=== PATIENT | female | born 1985 | race Caucasian/White ===

== ENCOUNTER 2017-02-22 22:39 | Emergency (ER) | payer BC, OTHER ==
[2017-02-22 22:49] VITALS: BP 135/79
[2017-02-22] MEDS ORDERED: Sodium Chloride 0.9% 10 ML Syringe FLUSH PRN (23:11)
[2017-02-22] MEDS ORDERED: Sodium Chloride 0.9% 1,000 ML IV STA (23:11)
[2017-02-23] MEDS ORDERED: Acetaminophen 325 MG Tab PO ONE (00:36)
--- NOTE | 2017-02-23 00:43 | EDM.PDOC ---
ED HPI GI/ABDOMINAL - General Chief Complaint: LABORATORY ASST Problem Stated Complaint: 12.5 WKS PG ABDOMAINAL PAIN Time Seen by Provider: 02/22/17 23:06 Source of Information: Reports: Patient History Limitations: Reports: No limitations - History of Present Illness INITIAL COMMENTS - FREE TEXT/NARRATIVE: The patient presents with lower abdominal pain and left lower back pain. This all started yesterday morning when she was driving home. She is about 12 1/2 weeks gestation. She is . Her LNMP was November 24. She has not had any troubles with the . She has no discharge or vaginal bleeding. She has no fever, chills, nausea, vomiting or dyuria. She had an US at 8 weeks and there were no problems. Movement makes it worse. Timing/Duration: Reports: Day(s): (Yesterday) Location: other (Lower abdomen and left lower back) Quality: Reports: burning Severity: moderate Worsens with: Reports: other (moving) Context: Denies: sick contact, bad/questionable food, out of country travel, recent surgery, recent trauma, lifting, activity/exercise Associated Symptoms (-Female): Reports: denies other symptoms - Related Data Allergies/ADRs: Allergies Allergy/AdvReac Type Severity Reaction Status Date / Time No Known Allergies Allergy Verified 03/02/14 13:06 Home Meds: Home Meds PNV95/Ferrous Fumarate/FA [ Tablet] 1 tab PO DAILY 02/22/17 [History] Social & Family History - Tobacco Use Smoking Status *Q: Never Smoker Second Hand Smoke Exposure: No - Caffeine Use Caffeine Use: Reports: Soda, Tea - Recreational Drug Use Recreational Drug Use: No ED ROS GENERAL - Review of Systems Review Of Systems: See Below Constitutional: Reports: no symptoms HEENT: Reports: No symptoms Respiratory: Reports: No Symptoms Cardiovascular: Reports: No symptoms Endocrine: Reports: no symptoms GI/Abdominal: Reports: Abdominal pain. Denies: Nausea, Vomiting : Reports: no symptoms Musculoskeletal: Reports: back pain Skin: Reports: no symptoms Neurological: Reports: No Symptoms ED EXAM, GI/ABD - Physical Exam Exam: See Below Exam Limited By: No limitations General Appearance: alert, no apparent distress Ears: normal external exam Nose: normal inspection Head: atraumatic, normocephalic Neck: normal inspection Respiratory/Chest: no respiratory distress, lungs clear, normal breath sounds Cardiovascular: regular rate, rhythm, no edema, no murmur GI/Abdominal: soft, no organomegaly, no mass, other (Gravid uterus above the umbilicus. Pain upon palpation to the lower abdomen to the midline and left.) Back Exam: other (Pain upon palpation to the left lower back) Extremities: normal inspection Course - Vital Signs Last Recorded V/S: Last Vital Signs Temp 97.7 F 02/22/17 22:47 Pulse 82 02/22/17 22:47 Resp 20 02/22/17 22:47 BP 135/79 02/22/17 22:47 Pulse Ox 98 02/22/17 22:47 - Orders/Labs/Meds Orders: Active Orders 24 hr Category Date Time Status Peripheral IV Care [RC] . DIRECTED Care 02/22/17 23:11 Active Sodium Chloride 0.9% [Saline Flush] Med 02/22/17 23:11 Active 10 ml FLUSH ASDIRECTED PRN Peripheral IV Insertion Adult [OM.PC] Stat Oth 02/22/17 23:11 Ordered Medication Orders Sodium Chloride (Saline Flush) 10 ml FLUSH ASDIRECTED PRN PRN Reason: Keep Vein Open Last Admin: 02/22/17 23:40 Dose: 10 ml Labs: Laboratory Tests 02/22/17 02/22/17 02/22/17 Range/Units 23:20 23:40 23:40 WBC 12.88 H (3.98-10.04) K/mm3 RBC 4.79 (3.98-5.22) M/mm3 Hgb 12.8 (11.2-15.7) gm/L Hct 38.4 (34.1-44.9) % MCV 80.2 (79.4-94.8) fl MCH 26.7 (25.6-32.2) pg MCHC 33.3 (32.2-35.5) g/dl RDW Std Deviation 43.9 (36.4-46.3) fL Plt Count 240 (182-369) K/mm3 MPV 10.7 (9.4-12.3) fl Neut % (Auto) 72.2 H (34.0-71.1) % Lymph % (Auto) 21.6 (19.3-51.7) % [place] % (Auto) 4.8 (4.7-12.5) % Eos % (Auto) 0.9 (0.7-5.8) Baso % (Auto) 0.2 (0.1-1.2) % Neut # (Auto) 9.29 H (1.56-6.13) K/mm3 Lymph # (Auto) 2.78 (1.18-3.74) K/mm3 [place] # (Auto) 0.62 H (0.24-0.36) K/mm3 Eos # (Auto) 0.12 (0.04-0.36) K/mm3 Baso # (Auto) 0.03 (0.01-0.08) K/mm3 Sodium 138 (136-145) mEq/L Potassium 3.7 (3.5-5.1) mEq/L Chloride 104 (98-107) mEq/L Carbon Dioxide 25 (21-32) mEq/L Anion Gap 12.7 (5-15) BUN 10 (7-18) mg/dL Creatinine 0.8 (0.55-1.02) mg/dL Est Cr Clr Drug Dosing 97.13 mL/min Estimated GFR (MDRD) > 60 (>60) mL/min BUN/Creatinine Ratio 12.5 L (14-18) Glucose 95 (74-106) mg/dL Calcium 9.3 (8.5-10.1) mg/dL Total Bilirubin 0.2 (0.2-1.0) mg/dL AST 9 L (15-37) U/L ALT 14 (14-59) U/L Alkaline Phosphatase 76 (46-116) U/L Total Protein 7.6 (6.4-8.2) g/dl Albumin 3.5 (3.4-5.0) g/dl Globulin 4.1 gm/dL Albumin/Globulin Ratio 0.9 L (1-2) Lipase 145 (73-393) U/L Urine Color Yellow (Yellow) Urine Appearance Clear (Clear) Urine pH 6.5 (5.0-8.0) Ur Specific [place] 1.020 (1.005-1.030) Urine Protein Negative (Negative) Urine Glucose (UA) Negative (Negative) Urine Ketones Negative (Negative) Urine Occult Blood Negative (Negative) Urine Nitrite Negative (Negative) Urine Bilirubin Negative (Negative) Urine Urobilinogen 0.2 (0.2-1.0) Ur Leukocyte Esterase Trace H (Negative) Urine RBC 0-5 (0-5) /hpf Urine WBC 5-10 H (0-5) /hpf Ur Epithelial Cells 5-10 H (0-5) /hpf Urine Bacteria Few (FEW) /hpf Urine Mucus Not seen (FEW) /hpf Meds: Medications Generic Name Dose Route Start Last Admin Trade Name Freq PRN Reason Stop Dose Admin Sodium Chloride 10 ml 02/22/17 23:11 02/22/17 23:40 Saline Flush FLUSH 10 ml ASDIRECTED PRN Administration Keep Vein Open Discontinued Medications Generic Name Dose Route Start Last Admin Trade Name Freq PRN Reason Stop Dose Admin Acetaminophen 975 mg 02/23/17 00:36 02/23/17 00:40 Tylenol PO 02/23/17 00:37 975 mg NOW ONE Administration Sodium Chloride 1,000 mls @ 1,000 mls/hr 02/22/17 23:11 02/22/17 23:40 Normal Saline IV 02/23/17 00:10 1,000 mls/hr .BOLUS STA Administration - Re-Assessments/Exams Free Text/Narrative Re-Assessment/Exam: 02/23/17 00:43 I ordered an IV NS 1L bolus, labs and UA. 02/23/17 00:43 Her WBC is slightly elevated at 12.88. That can bee seen in . Her CMP and lipase are negative. Her UA shows no UTI. She feels a little better. This appears to be muscle related. She will try some tylenol and see if that helps. I did an US and FHTs were 155 and the baby was moving. I did not see any problems with the placenta. 02/23/17 01:17 She feels a little better and is tired. I will discharge her home. 02/23/17 01:18 Departure - Departure Time of Disposition: 01:20 Disposition: Home, Self-Care 01 Condition: good Clinical Impression: Qualifiers: Weeks of gestation: 12 weeks Qualified Code(s): Z3A.12 - 12 weeks gestation of Abdominal pain Qualifiers: Abdominal location: lower abdomen, unspecified Qualified Code(s): R10.30 - Lower abdominal pain, unspecified Back pain Qualifiers: Back pain location: low back pain Chronicity: acute Back pain laterality: left Sciatica presence: without sciatica Qualified Code(s): M54.5 - Low back pain Forms: ED Department Discharge Additional Instructions: Take tylenol for pain. Please return if you have more pain or if the pain moves to the right lower abdomen where your appendix is. Please return if you have nausea, vomiting, or vaginal bleeding. Follow up with your provider next week. - My Orders Last 24 Hours: My Active Orders 02/22/17 23:11 Peripheral IV Care [RC] . DIRECTED Sodium Chloride 0.9% [Saline Flush] 10 ml FLUSH ASDIRECTED PRN Peripheral IV Insertion Adult [OM.PC] Stat - Assessment/Plan Last 24 Hours: My Active Orders 02/22/17 23:11 Peripheral IV Care [RC] . DIRECTED Sodium Chloride 0.9% [Saline Flush] 10 ml FLUSH ASDIRECTED PRN Peripheral IV Insertion Adult [OM.PC] Stat
== END 2017-02-23 01:30 | disposition home or self-care (01) ==
LOC: SUPCPDRO 22:39 → JD.ED 22:39
DX: O99.89 Other specified diseases and conditions complicating pregnancy, childbirth and the puerperium (principal); M54.5 Low back pain; R10.30 Lower abdominal pain, unspecified; Z3A.12 12 weeks gestation of pregnancy
CPT/HCPCS: 36415; 80053; 81001; 83690; 85025; 96360; 99284; A9270; J7040; J7050; 99283

== ENCOUNTER 2017-11-11 16:47 | Emergency (ER) | payer OTHER ==
[2017-11-11 17:08] VITALS: BP 143/96
[2017-11-11] MEDS ORDERED: Sodium Chloride 0.9% 10 ML Syringe FLUSH PRN (17:23)
[2017-11-11] MEDS ORDERED: Sodium Chloride 0.9% 1,000 ML IV SCH (17:30)
[2017-11-11] MEDS ORDERED: metroNIDAZOLE 500 MG Tab PO ONE (19:58)
--- NOTE | 2017-11-11 20:06 | EDM.PDOC ---
ED HPI GENERAL MEDICAL PROBLEM - General Chief Complaint: General Stated Complaint: RECTOCELE Time Seen by Provider: 11/11/17 17:03 Source of Information: Reports: Patient, Family History Limitations: Reports: No Limitations - History of Present Illness INITIAL COMMENTS - FREE TEXT/NARRATIVE: The patient presents with a possible rectocele. She recently had her 5th child on August 30. In July, she was seen here by Dr Bernardo for an OB check and a prolapsed cervix. It was manually reduced by the patient. She delivered on the at [facility]. She had a uterine prolapse where the cervix was at the hymen. It was reduced. She also has a short perineum of 1cm. She did good after the surgery until her follow up OB visit and she had a speculum exam and there was lots of discomfort with that and rectal exam. She was told she had a rectocele and she may need that fixed. She has continued to have vaginal pain, discharge and at time rectal bleeding. She has no fever or chills at this time but she does not feel good. She has some dysuria. She has no chest pain or shortness of breath. She has some nausea but no vomiting. Onset: Gradual Duration: Week(s): (2) Location: Reports: Pelvis Quality: Reports: Sharp Severity: Moderate Improves with: Reports: None Worsens with: Reports: Movement Associated Symptoms: Reports: Nausea/Vomiting. 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 Denies: Vomiting : Reports: Other (Pain and discharge) ED EXAM, GENERAL - Physical Exam Exam: See Below Exam Limited By: No Limitations General Appearance: Alert, No Apparent Distress Ears: Normal External Exam Nose: Normal Inspection Head: Atraumatic, Normocephalic Neck: Normal Inspection Respiratory/Chest: No Respiratory Distress, Lungs Clear, Normal Breath Sounds Cardiovascular: Regular Rate, Rhythm, No Edema, No Murmur GI/Abdominal: Soft, No Organomegaly, No Mass, Tender (Mild tendernes to the lower abdomen) (Female) Exam: Other (external exam shows the peritineum and surrounding tissue to have erythema and edema. There is moderate yellow discharge from the vagina that is fowell smelling. The patient did not want a speculum exam done.) Course - Vital Signs Last Recorded V/S: Last Vital Signs Temp 98.5 F 11/11/17 17:03 Pulse 88 11/11/17 17:03 Resp 18 11/11/17 17:03 BP 143/96 H 11/11/17 17:03 Pulse Ox 97 11/11/17 17:03 - Orders/Labs/Meds Orders: Active Orders 24 hr Category Date Time Status Peripheral IV Care [RC] . DIRECTED Care 11/11/17 17:24 Active CULTURE GENITAL [RM] Stat Lab 11/11/17 19:58 Uncollected CULTURE URINE [RM] Stat Lab 11/11/17 17:39 Received WET PREP [MYC] Stat Lab 11/11/17 19:58 Uncollected Sodium Chloride 0.9% [Normal Saline] 1,000 ml Med 11/11/17 17:30 Active IV ASDIRECTED Sodium Chloride 0.9% [Saline Flush] Med 11/11/17 17:23 Active 10 ml FLUSH ASDIRECTED PRN Peripheral IV Insertion Adult [OM.PC] Stat Oth 11/11/17 17:23 Ordered Medication Orders Sodium Chloride (Normal Saline) 1,000 mls @ 125 mls/hr IV ASDIRECTED MARLON Last Admin: 11/11/17 17:39 Dose: 125 mls/hr Sodium Chloride (Saline Flush) 10 ml FLUSH ASDIRECTED PRN PRN Reason: Keep Vein Open Last Admin: 11/11/17 17:39 Dose: 10 ml Labs: Laboratory Tests 11/11/17 11/11/17 11/11/17 Range/Units 17:39 18:00 18:00 WBC 12.46 H (3.98-10.04) K/mm3 RBC 5.17 (3.98-5.22) M/mm3 Hgb 13.4 (11.2-15.7) gm/L Hct 40.9 (34.1-44.9) % MCV 79.1 L (79.4-94.8) fl MCH 25.9 (25.6-32.2) pg MCHC 32.8 (32.2-35.5) g/dl RDW Std Deviation 49.3 H (36.4-46.3) fL Plt Count 280 (182-369) K/mm3 MPV 9.6 (9.4-12.3) fl Neut % (Auto) 75.5 H (34.0-71.1) % Lymph % (Auto) 17.7 L (19.3-51.7) % [place] % (Auto) 5.5 (4.7-12.5) % Eos % (Auto) 0.7 (0.7-5.8) Baso % (Auto) 0.4 (0.1-1.2) % Neut # (Auto) 9.41 H (1.56-6.13) K/mm3 Lymph # (Auto) 2.20 (1.18-3.74) K/mm3 [place] # (Auto) 0.68 H (0.24-0.36) K/mm3 Eos # (Auto) 0.09 (0.04-0.36) K/mm3 Baso # (Auto) 0.05 (0.01-0.08) K/mm3 Sodium 144 (136-145) mEq/L Potassium 3.6 (3.5-5.1) mEq/L Chloride 107 (98-107) mEq/L Carbon Dioxide 24 (21-32) mEq/L Anion Gap 16.6 H (5-15) BUN 14 (7-18) mg/dL Creatinine 1.0 (0.55-1.02) mg/dL Est Cr Clr Drug Dosing 77.01 mL/min Estimated GFR (MDRD) > 60 (>60) mL/min BUN/Creatinine Ratio 14.0 (14-18) Glucose 88 (74-106) mg/dL Calcium 9.0 (8.5-10.1) mg/dL Total Bilirubin 0.5 (0.2-1.0) mg/dL AST 14 L (15-37) U/L ALT 22 (14-59) U/L Alkaline Phosphatase 106 (46-116) U/L Total Protein 7.8 (6.4-8.2) g/dl Albumin 3.7 (3.4-5.0) g/dl Globulin 4.1 gm/dL Albumin/Globulin Ratio 0.9 L (1-2) Lipase 126 (73-393) U/L HCG, Qual (NEGATIVE) Urine Color Yellow (Yellow) Urine Appearance Clear (Clear) Urine pH 6.0 (5.0-8.0) Ur Specific [place] 1.025 (1.005-1.030) Urine Protein Negative (Negative) Urine Glucose (UA) Negative (Negative) Urine Ketones Trace H (Negative) Urine Occult Blood 3+ H (Negative) Urine Nitrite Negative (Negative) Urine Bilirubin Negative (Negative) Urine Urobilinogen 0.2 (0.2-1.0) Ur Leukocyte Esterase Trace H (Negative) Urine RBC 10-20 H (0-5) /hpf Urine WBC 0-5 (0-5) /hpf Ur Epithelial Cells 5-10 H (0-5) /hpf Urine Bacteria Many H (FEW) /hpf Urine Mucus Not seen (FEW) /hpf 11/11/17 Range/Units 18:00 WBC (3.98-10.04) K/mm3 RBC (3.98-5.22) M/mm3 Hgb (11.2-15.7) gm/L Hct (34.1-44.9) % MCV (79.4-94.8) fl MCH (25.6-32.2) pg MCHC (32.2-35.5) g/dl RDW Std Deviation (36.4-46.3) fL Plt Count (182-369) K/mm3 MPV (9.4-12.3) fl Neut % (Auto) (34.0-71.1) % Lymph % (Auto) (19.3-51.7) % [place] % (Auto) (4.7-12.5) % Eos % (Auto) (0.7-5.8) Baso % (Auto) (0.1-1.2) % Neut # (Auto) (1.56-6.13) K/mm3 Lymph # (Auto) (1.18-3.74) K/mm3 [place] # (Auto) (0.24-0.36) K/mm3 Eos # (Auto) (0.04-0.36) K/mm3 Baso # (Auto) (0.01-0.08) K/mm3 Sodium (136-145) mEq/L Potassium (3.5-5.1) mEq/L Chloride (98-107) mEq/L Carbon Dioxide (21-32) mEq/L Anion Gap (5-15) BUN (7-18) mg/dL Creatinine (0.55-1.02) mg/dL Est Cr Clr Drug Dosing mL/min Estimated GFR (MDRD) (>60) mL/min BUN/Creatinine Ratio (14-18) Glucose (74-106) mg/dL Calcium (8.5-10.1) mg/dL Total Bilirubin (0.2-1.0) mg/dL AST (15-37) U/L ALT (14-59) U/L Alkaline Phosphatase (46-116) U/L Total Protein (6.4-8.2) g/dl Albumin (3.4-5.0) g/dl Globulin gm/dL Albumin/Globulin Ratio (1-2) Lipase (73-393) U/L HCG, Qual Negative (NEGATIVE) Urine Color (Yellow) Urine Appearance (Clear) Urine pH (5.0-8.0) Ur Specific [place] (1.005-1.030) Urine Protein (Negative) Urine Glucose (UA) (Negative) Urine Ketones (Negative) Urine Occult Blood (Negative) Urine Nitrite (Negative) Urine Bilirubin (Negative) Urine Urobilinogen (0.2-1.0) Ur Leukocyte Esterase (Negative) Urine RBC (0-5) /hpf Urine WBC (0-5) /hpf Ur Epithelial Cells (0-5) /hpf Urine Bacteria (FEW) /hpf Urine Mucus (FEW) /hpf Meds: Medications Generic Name Dose Route Start Last Admin Trade Name Freq PRN Reason Stop Dose Admin Sodium Chloride 1,000 mls @ 125 mls/hr 11/11/17 17:30 11/11/17 17:39 Normal Saline IV 125 mls/hr ASDIRECTED MARLON Administration Sodium Chloride 10 ml 11/11/17 17:23 11/11/17 17:39 Saline Flush FLUSH 10 ml ASDIRECTED PRN Administration Keep Vein Open Discontinued Medications Generic Name Dose Route Start Last Admin Trade Name Rosa PRN Reason Stop Dose Admin Metronidazole 500 mg 11/11/17 19:58 Flagyl PO 11/11/17 19:59 ONETIME ONE - Re-Assessments/Exams Free Text/Narrative Re-Assessment/Exam: 11/11/17 20:10 I ordered an IV NS at 125mL/hr, labs, and UA. Her WBC was elevated at 12.46. Her anion gap is elevated at 16.6. Her HCG is negative. Her UA shows occult blood, trace of leukocyte esterase, and many bacteria. I will culture her urine. The patient did not want a speculum exam done. I did a external exam. I did no see anything prolapsing but there was moderate drainage form her vagina. I called Dr Sandoval to see if I should do some imaging or anything else. He wanted me to do a wet prep and culture and start her on some flagyl. I will talk to Dr Bernardo tomorrow and he will work her in. Departure - Departure Time of Disposition: 08:15 Disposition: Home, Self-Care 01 Condition: Good Clinical Impression: Pelvic pain, Vaginal infection, Rectocele - Discharge Information Prescriptions: metroNIDAZOLE [Flagyl] 500 mg PO Q12H #14 tablet Referrals: Brian Bernardo MD [Primary Care Provider] - 1 Day Additional Instructions: Take the flagyl 2 times per day for [address] Bernardo's clinic tomorrow and let them know I spoke with Dr Sandoval and you need to see Dr Bernardo tomorrow. Please return if you are worse. - My Orders Last 24 Hours: My Active Orders 11/11/17 17:23 Sodium Chloride 0.9% [Saline Flush] 10 ml FLUSH ASDIRECTED PRN Peripheral IV Insertion Adult [OM.PC] Stat 11/11/17 17:24 Peripheral IV Care [RC] . DIRECTED 11/11/17 17:30 Sodium Chloride 0.9% [Normal Saline] 1,000 ml IV ASDIRECTED 11/11/17 17:39 CULTURE URINE [RM] Stat 11/11/17 19:58 CULTURE GENITAL [RM] Stat WET PREP [MYC] Stat - Assessment/Plan Last 24 Hours: My Active Orders 11/11/17 17:23 Sodium Chloride 0.9% [Saline Flush] 10 ml FLUSH ASDIRECTED PRN Peripheral IV Insertion Adult [OM.PC] Stat 11/11/17 17:24 Peripheral IV Care [RC] . DIRECTED 11/11/17 17:30 Sodium Chloride 0.9% [Normal Saline] 1,000 ml IV ASDIRECTED 11/11/17 17:39 CULTURE URINE [RM] Stat 11/11/17 19:58 CULTURE GENITAL [RM] Stat WET PREP [MYC] Stat
[2017-11-11] MEDS ORDERED: Acetaminophen/HYDROcodone 325-5 MG Tab PO ONE (20:17)
== END 2017-11-11 20:40 | disposition home or self-care (01) ==
LOC: JD.ED 16:47
DX: N76.0 Acute vaginitis (principal); N81.6 Rectocele
CPT/HCPCS: 36415; 80053; 81001; 83690; 84703; 85025; 87070; 87077; 87086; 87186; 87210; 87808; 96360; 96361; 99284; A9270; J7040; J7050